=== PATIENT | female | born 1945 | race Caucasian/White ===

== ENCOUNTER → 2019-10-15 | Outpatient (CLI) | payer OTHER ==
[~2019-10-15] MED LIST: ACTOS 30 MG TAB30 MG PO; ADULT LOW DOSE81 MG PO; ALBUTEROL INH INH; AMARYL4 MG PO; CELEBREX 200 M200 MG PO; CO Q-10150 MG PO; FISH OIL 1,2001 EAC4 PO; FOSAMAX 70 MG T70 M1 PO; GLUCOPHAGE500 MG PO; GLUCOSAMINE &1 EAC1 PO; HYDROCODON-ACE1 EAC5; HYDROCODON-ACE1 EAC8 PO; HYZAAR 50-12.51 EACH PO; JANUVIA100 MG PO; LIPITOR10 MG PO; NASONEX17 GM NS; NEURONTIN 400M400 M2 PO; OXYCONTIN CR 1010 MG; PAROXETINE HCL20 MG PO; PRILOSEC 20 MG20 MG PO; ROBAXIN 750 MG750 M1; TUMERIC PO; VITAMIN D-32000 UNIT PO; VITAMIN D1000 UNI1 PO; ZOCOR 20 MG TAB20 M1 PO
== END ==
LOC: SJCVC 16:05
DX: R06.09 Other forms of dyspnea (principal); R00.2 Palpitations; R09.89 Other specified symptoms and signs involving the circulatory and respiratory systems; E11.22 Type 2 diabetes mellitus with diabetic chronic kidney disease; I12.9 Hypertensive chronic kidney disease with stage 1 through stage 4 chronic kidney disease, or unspecified chronic kidney disease; N18.3 Chronic kidney disease, stage 3 (moderate); E78.5 Hyperlipidemia, unspecified; E55.9 Vitamin D deficiency, unspecified; Z79.899 Other long term (current) drug therapy

== ENCOUNTER → 2019-10-19 | Outpatient (CLI) | payer OTHER | LOC: SJCVC 13:46 | DX: R00.2 Palpitations (principal); R07.89 Other chest pain; E11.22 Type 2 diabetes mellitus with diabetic chronic kidney disease; I12.9 Hypertensive chronic kidney disease with stage 1 through stage 4 chronic kidney disease, or unspecified chronic kidney disease; N18.3 Chronic kidney disease, stage 3 (moderate); E78.00 Pure hypercholesterolemia, unspecified; E78.5 Hyperlipidemia, unspecified; E55.9 Vitamin D deficiency, unspecified; Z79.899 Other long term (current) drug therapy ==

== ENCOUNTER → 2019-10-20 | Outpatient (CLI) | payer OTHER | LOC: SJCVCIMAG 11:37 | DX: I08.3 Combined rheumatic disorders of mitral, aortic and tricuspid valves (principal); R09.89 Other specified symptoms and signs involving the circulatory and respiratory systems; E11.9 Type 2 diabetes mellitus without complications ==

== ENCOUNTER → 2019-10-23 | Outpatient (CLI) | payer OTHER | LOC: SJCVCIMAG 08:59 | DX: R00.1 Bradycardia, unspecified (principal); I12.9 Hypertensive chronic kidney disease with stage 1 through stage 4 chronic kidney disease, or unspecified chronic kidney disease; E11.22 Type 2 diabetes mellitus with diabetic chronic kidney disease; N18.9 Chronic kidney disease, unspecified; E78.5 Hyperlipidemia, unspecified; Z79.82 Long term (current) use of aspirin; Z79.899 Other long term (current) drug therapy ==

== ENCOUNTER → 2019-10-29 | Outpatient (CLI) | payer OTHER | LOC: SJCVC 13:17 | DX: R94.31 Abnormal electrocardiogram [ECG] [EKG] (principal); R94.39 Abnormal result of other cardiovascular function study; R00.2 Palpitations; R01.1 Cardiac murmur, unspecified; I35.1 Nonrheumatic aortic (valve) insufficiency; I10 Essential (primary) hypertension; E78.00 Pure hypercholesterolemia, unspecified; E11.9 Type 2 diabetes mellitus without complications; I65.23 Occlusion and stenosis of bilateral carotid arteries ==

== ENCOUNTER → 2019-11-06 | Outpatient (CLI) | payer OTHER ==
[~2019-11-06] VITALS: Ht 152.4 cm; Wt 81.6 kg
[2019-11-06 07:39] LABS: HEMATOCRIT 34.2 % (37.0-47.0); HEMOGLOBIN 11.4 gm/dL (12.0-15.0); MCH 32.1 pg (26.0-34.0); MCHC 33.2 g/dL (28.0-37.0); MCV 96.5 fL (80.0-100.0); RBC 3.54 mil/uL (4.20-5.00); RDW 13.7 % (10.5-14.5); WBC 3.7 thou/uL (4.0-11.0)
[2019-11-06 07:47] LABS: CALCIUM 9.4 mg/dL (8.5-10.1); CREATININE 1.1 mg/dL (0.6-1.0); POTASSIUM 3.7 mmol/L (3.5-5.1)
[2019-11-06 08:07] VITALS: BP 149/56
--- NOTE | 2019-11-06 08:53 | EKG ---
[facility] [place] [address] ELECTROCARDIOGRAM REPORT Name: [facility] ANDERSON [id number]: [facility]/19 Attend Phys: Vamshi Blunt MD, Discharge: Date of : 47 Report #: [id number] THIS REPORT FOR: cc: Ward Tony MD, Bernard O. MD Lundgren, Craig H. MD [facility] ~ THIS REPORT FOR: //name// [facility] Test Date: 2019-11-06 Test Time: 07:41:28 Pat Name: CARY ANDERSON Department: Room: Gender: F Wireless Watcher: ROS : 1945 Requested By: Vamshi Blunt Order Number: [id number] MD: Javy Steve Measurements Intervals [place] Rate: 56 P: 13 [place]: 162 QRS: 2 QRSD: 96 T: 4 QT: 446 QTc: 431 Interpretive Statements Sinus bradycardia Otherwise no significant abnormality Compared to ECG 09/19/2011 14:42:38 No significant change was found Electronically Signed On 11-06-2019 8:51:47 CDT by Javy Steve [email or web address] <ELECTRONICALLY SIGNED> By: Javy Steve MD, [facility] 11/06/19 0851 0741 0741 Javy Steve MD, [facility] /EPI
--- NOTE | 2019-11-09 16:16 | CATHLAB ---
[facility] [place] [address] INVASIVE PROCEDURE REPORT Name: CARY ANDERSON Room #: REG [facility] Que.#: [id number] Admission: 11/06/19 Attend Phys: Vamshi Blunt MD, Discharge: Date of : 47 Report #: [id number] THIS REPORT FOR: cc: Ward Tony MD, Bernard O. MD Mancuso, Gerald M. MD [facility] ~ APPROVED REPORT Study performed: 11/06/2019 07:52:32 Patient Details Patient Status: Out-Patient Room #: The patient is a 74 year-old female Event Personnel Vamshi Blunt Director Of Partner Marketing, Facundo Sears RN, Shannon Dave RTR Tuan Gill Roberta Monitor Procedures Performed Art Access - R femoral artery* Left Heart Cath w/or w/o Coronaries [id number] [facility] [id number] Initial Mod Sed Same Phys/QHP Gr5y 237004 Hemostasis w/ Mynx Indication Chest pain Procedure Narrative The Right Groin^ was infiltrated with 1% Lidocaine subcutaneous anesthesia. A PINNACLE 6FR Sheath #[id number] sheath was inserted into the RFA 6F^. Coronary angiography was performed using coronary diagnostic catheters. The right coronary system was accessed and visualized with a JR4 catheter. The left coronary system was accessed and visualized with a JL4 catheter. The left ventricle was accessed and visualized with a STR PIG catheter. Left ventriculogram was performed in 30 degree projection. The patient tolerated the procedure well and there were no complications associated with the procedure. There was no hematoma. Intraoperative Conscious Sedation Sedation start time: 839 Case end Time: 924 Fentanyl 50 mcg Versed 1 mg Fluoro Time: 1.48 minutes [facility] [address] [place] [address] INVASIVE PROCEDURE REPORT Name: CAYR ANDERSONNE Room #: [facility]#: [id number] Admission: 11/06/19 Attend Phys: Vamshi Blunt, Discharge: Date of : 47 Report #: [id number] Dose: DAP 2400.50 cGycm2 264 mGy Contrast Type and Amount: Omnipaque 130 ml Hemodynamics The aortic pressure is 163/52 mmHg with a mean of 79 mmHg. The left ventricular pressure is 151/23 mmHg with a mean of mmHg. The left ventricular end diastolic pressure is 45 mmHg. Conclusion #1. Normal left jugular size and systolic function EF 60% #2 abdominal aorta is intact no evidence of aneurysm mild renal artery disease is noted brisk distal flow #3 left main mildly calcified widely patent giving rise to LAD and circumflex #4 LAD with proximal calcification and mild proximal disease diffuse distal disease in a small attenuated vessel distally. No occlusive disease #5 circumflex OM mild irregularity small nondominant #6 dominant right coronary artery proximal calcification eccentric lesion 30 to 40% well preserved PDA RICARDO. Recommendations and plan: Continue aggressive risk factor modification. No indication for coronary intervention. <ELECTRONICALLY SIGNED> By: Vamshi Blunt MD, FACC 11/09/19 1614 13 13 Vamshi Blunt MD, FACC /INF
== END | disposition home or self-care (01) ==
LOC: CATH 06:46
PROVIDERS: Internal Medicine Cardiovascular Disease
DX: R07.9 Chest pain, unspecified (principal); I25.10 Atherosclerotic heart disease of native coronary artery without angina pectoris; I70.1 Atherosclerosis of renal artery; I10 Essential (primary) hypertension; E78.00 Pure hypercholesterolemia, unspecified; F32.9 Major depressive disorder, single episode, unspecified; E11.9 Type 2 diabetes mellitus without complications; K21.9 Gastro-esophageal reflux disease without esophagitis; J45.909 Unspecified asthma, uncomplicated; Z82.49 Family history of ischemic heart disease and other diseases of the circulatory system; Z98.890 Other specified postprocedural states; Z79.899 Other long term (current) drug therapy; Z85.3 Personal history of malignant neoplasm of breast

== ENCOUNTER → 2020-07-28 | Outpatient (CLI) | payer OTHER | LOC: SJCVC 13:01 | PROVIDERS: ATTEND Internal Medicine Cardiovascular Disease | DX: I25.10 Atherosclerotic heart disease of native coronary artery without angina pectoris (principal); R00.2 Palpitations; E78.00 Pure hypercholesterolemia, unspecified; D64.9 Anemia, unspecified; E11.22 Type 2 diabetes mellitus with diabetic chronic kidney disease; I12.9 Hypertensive chronic kidney disease with stage 1 through stage 4 chronic kidney disease, or unspecified chronic kidney disease; N18.9 Chronic kidney disease, unspecified; Z72.89 Other problems related to lifestyle ==

== ENCOUNTER → 2021-04-28 | Outpatient (CLI) | payer OTHER | LOC: SJCVC 11:21 | PROVIDERS: ATTEND Internal Medicine Cardiovascular Disease | DX: I25.10 Atherosclerotic heart disease of native coronary artery without angina pectoris (principal); E78.00 Pure hypercholesterolemia, unspecified; I65.23 Occlusion and stenosis of bilateral carotid arteries; E11.22 Type 2 diabetes mellitus with diabetic chronic kidney disease; I12.9 Hypertensive chronic kidney disease with stage 1 through stage 4 chronic kidney disease, or unspecified chronic kidney disease; N18.30 Chronic kidney disease, stage 3 unspecified; D64.9 Anemia, unspecified; M24.673 Ankylosis, unspecified ankle; K57.90 Diverticulosis of intestine, part unspecified, without perforation or abscess without bleeding; E78.5 Hyperlipidemia, unspecified; M85.80 Other specified disorders of bone density and structure, unspecified site; E04.1 Nontoxic single thyroid nodule; E55.9 Vitamin D deficiency, unspecified; Z79.82 Long term (current) use of aspirin; Z79.84 Long term (current) use of oral hypoglycemic drugs; Z79.899 Other long term (current) drug therapy; Z82.49 Family history of ischemic heart disease and other diseases of the circulatory system ==